=== PATIENT | female | born 1950 | race Caucasian/White ===

== ENCOUNTER → 2018-02-16 | Outpatient (CLI) | payer OTHER ==
[~2018-02-16] MED LIST: CALCIUM; CEPH-312 PO; HCTZ25 PO; LOSA-51 PO; METF-415 PO; TRA50 PO
--- NOTE | 2018-02-16 16:22 | RADIOLOGY IMAGING REPORT ---
FACILITY: [facility] PATIENT NAME: Edel Asher : 1950 MR: [id number] V: [id number] EXAM DATE: ORDERING PHYSICIAN: REJI JOYA TECHNOLOGIST: Location: [facility] [place] Patient: Edel Asher : 1950 Visit/Account:[id number] Date of Sevice: 02/16/2018 DEXA Scan Clinical history: screening. Comparison: None. LUMBAR SPINE: The bone mineral density (BMD) measured from L1-L4 correlates with a Z-score of -1.9 and a T-score of -2.6 which is osteoporotic as defined by the World Health Organization. The corresponding risk of f racture in the lumbar spine is significantly increased compared with a young adult reference populati on. HIP: Bone mineral density (BMD) measured in the Left total hip region correlates with a Z-score of -1.2 and a T-score of -2.6. The T-score of the femoral neck is -2.5. The lower of the two T sco res is osteoporotic which is defined as defined by the World Health Organization. The correspondin g risk of fracture in the hip is significantly increased compared with a young adult reference popula tion. Bone mineral density (BMD) measured in the Left Femoral Neck region measures 0.686 g/cm?. Impression: 1. Lumbar spine: Osteoporotic. 2. Left Total Hip: Osteoporotic. The next DEXA scan of this patient should include the following sites: L1-L4 and Left hip. FRAX? WHO Fracture Risk Assessment Tool link: <http://www.shef.ac.uk/FRAX/tool.jsp?locationValue=9> PLEASE NOTE: 1) The World Health Organization defines low BMD as follows: T-score Normal > -1 Osteopenia < -1 and > -2.5 Osteoporosis < -2.5 without fractures Established osteoporosis < -2.5 with fractures 2) In general, you may wish to consider: Diagnosis Treatment Follow-up DEXA Normal BMD Prevention 2-3 years Osteopenia Prevention/therapy 1-2 years Osteoporosis Therapy Yearly 3) Fracture risk estimated from the T-score is more accurate for vertebral fractures (often spontane ous) than for hip fractures. Report Dictated By: Keven Jung MD at 02/16/2018 4:17 PM Report E-Signed By: Keven Jung MD at 02/16/2018 4:18 PM WSN:[email or web address]
== END ==
LOC: MAMO 00:22
PROVIDERS: ATTEND Physician Assistant
DX: Z13.820 Encounter for screening for osteoporosis (principal); Z12.31 Encounter for screening mammogram for malignant neoplasm of breast; M81.0 Age-related osteoporosis without current pathological fracture
CPT/HCPCS: 77063; 77067; 77080

== ENCOUNTER → 2018-08-02 | Outpatient (REF) | payer MEDICARE, OTHER | LOC: ZZSTITCHES 13:21 | PROVIDERS: ATTEND Physician Assistant | DX: E87.6 Hypokalemia (principal) | CPT/HCPCS: 82310; 82374; 82435; 82565; 82947; 84132; 84295; 84520 ==